=== PATIENT | female | born 2000 | race Caucasian/White ===

== ENCOUNTER 2025-03-30 21:19 | Emergency (ER) | payer OTHER ==
[~2025-03-30] VITALS: Ht 162.6 cm; Wt 90.7 kg
[~2025-03-30 21:19] MED LIST: ALBU90OI INH; ALBU90OI61 INH; AZIT200SU PO; CODGUAEL PO; PRED15SY PO; TRIM100S PR
[2025-03-30] MEDS ORDERED: Ondansetron HCl 2 MG / ML 2ML Vial IV ONE ×2 (21:35→23:50)
[2025-03-30 22:06] LABS: Source, Urine Clean Catch
[2025-03-30 22:15] LABS: BASOPHILS ABSOLUTE AUTO 0.04 K/mm3 (0.00-0.23); BASOPHILS PERCENT AUTO 0 % (0-2); EOSINOPHILS ABSOLUTE AUTO 0.23 K/mm3 (0.00-0.68); EOSINOPHILS PERCENT AUTO 2 % (0-6); Hematocrit 45.4 % (33.0-51.0); Hemoglobin 14.7 g/dL (11.5-16.0); IMMATURE GRAN ABSOLUTE AUTO 0.03 K/mm3 (0.00-0.10); IMMATURE GRAN PERCENT AUTO 0 % (0-1); LYMPHOCYTES ABSOLUTE AUTO 2.63 K/mm3 (0.84-5.20); LYMPHOCYTES PERCENT AUTO 21 % (21-46); MONOCYTES ABSOLUTE AUTO 0.63 K/mm3 (0.16-1.47); MONOCYTES PERCENT AUTO 5 % (4-13); Mean Corpuscular HGB Conc 32.4 g/dL (31.5-36.5); Mean Corpuscular Volume 80 fL (80-100); NEUTROPHILS ABSOLUTE AUTO 8.76 K/mm3 (1.96-9.15); NEUTROPHILS PERCENT AUTO 71 % (41-73); NRBC ABSOLUTE 0.00 K/mm3 (0.00-0.02); NRBC Auto 0.0 /100 WBC (0.0-0.2); Platelet Count 414 K/mm3 (150-400); RDW Coefficient Variation 14.4 % (11.7-14.2); RDW Standard Deviation 41.4 fL (35.1-46.3)
[2025-03-30 22:21] LABS: Bilirubin, Urine Neg (Neg); Glucose Qualitative, Urine Neg (Neg); Ketones, Urine Neg (Neg); Leukocyte Esterase, Urine Neg (Neg); Protein, Urine Neg (Neg); Specific Gravity, Urine 1.010 (1.003-1.022); Urobilinogen, Urine NORM (Normal)
[2025-03-30 22:29] LABS: Color, Urine Pale Yellow (P-Yellow)
[2025-03-30] MEDS ORDERED: Morphine Sulfate 4 MG/1 ML Injection IV ONE (22:30)
[2025-03-30 22:31] LABS: Alanine Aminotransfer (ALT/SGP 24.0 U/L (12-78); Albumin, Blood 3.6 g/dL (3.4-5.0); Albumin/Globulin Ratio 0.8 (0.8-1.8); Anion Gap 7.0 mmol/L (3-11); Aspartate Aminotrans (AST/SGOT 39.0 U/L (12-37); Bilirubin, Total 0.6 mg/dL (0.1-1.0); Blood Urea Nitrogen 8.0 mg/dL (8-24); CO2, Blood 28.0 mmol/L (21-32); Calcium, Blood 8.7 mg/dL (8.5-10.1); Chloride, Blood 107.0 mmol/L (98-108); Creatinine, Blood 0.79 mg/dL (0.40-1.00); Globulin, Blood 4.3 g/dL (2.2-4.0); Glucose, Blood 85.0 mg/dL (70-99); Potassium, Blood 4.3 mmol/L (3.5-5.5); Sodium, Blood 138.0 mmol/L (136-145); Total Protein, Blood 7.9 g/dL (6.4-8.2)
[2025-03-30] MEDS ORDERED: HYDROmorphone HCl/Pf 1MG SYR IV ONE (23:35)
[2025-03-31] MEDS ORDERED: Haloperidol Lactate Inj. 5 MG/ML Injection IV ONE (01:00)
[2025-03-31] MEDS ORDERED: ONDA4ODT MM (01:57)
[2025-03-31] MEDS ORDERED: RX Prepack 6 Tabs Oxycodone 5mg UD ONE (02:00)
[2025-03-31] MEDS ORDERED: RX Prepack 2 Tabs Ondansetron ODT 4MG UD ONE (02:00)
== END 2025-03-31 02:18 | disposition home or self-care (01) ==
LOC: ER 21:19
PROVIDERS: Emergency Medicine
DX: R10.9 Unspecified abdominal pain (principal); Z87.442 Personal history of urinary calculi; I10 Essential (primary) hypertension; Z88.0 Allergy status to penicillin; Z88.1 Allergy status to other antibiotic agents; Z88.8 Allergy status to other drugs, medicaments and biological substances; Z79.899 Other long term (current) drug therapy
CPT/HCPCS: 74177; 80053; 81003; 81025; 83690; 85025; 96361; 96374-59; 96375; 96376; 99284-25; A9270; J1171; J1630; J2270; J2405; J7120; Q9967